=== PATIENT | female | born 1930 | race Caucasian/White ===

== ENCOUNTER 2016-05-17 10:02 | Inpatient (IN) | payer MEDICARE, BC ==
[~2016-05-17] VITALS: Ht 157.5 cm; Wt 65.2 kg
[2016-05-17] MEDS ORDERED: SOD CHLORIDE 0.9% 500 ML IV STA (10:22)
[2016-05-17] MEDS ORDERED: ALBUTEROL 0.5% (NEB) 2.5 MG/0.5 ML AMP INH STA (10:23)
[2016-05-17 10:55] LABS: MEAN CORPUSCULAR HEMOGLOBIN 25.2 pg (29.0-33.0); MEAN CORPUSCULAR VOLUME 77.6 fl (82.0-101.0); MEAN PLATELET VOLUME 10.5 fl (7.4-10.4); RED CELL DISTRIBUTION WIDTH 23.3 % (11.5-14.5)
[2016-05-17 11:03] LABS: ALBUMIN 2.3 g/dl (3.3-4.9); POTASSIUM 4.6 mmol/L (3.5-5.1)
[2016-05-17] MEDS ORDERED: AMBR5TAB3 PO (11:04)
[2016-05-17] MEDS ORDERED: FURO20TA3 PO (11:04)
[2016-05-17 11:05] LABS: CREATININE 0.83 mg/dl (0.44-1.00)
[2016-05-17] MEDS ORDERED: POTA-57 PO (11:05)
[2016-05-17] MEDS ORDERED: SILD20TA PO (11:05)
[2016-05-17 11:06] LABS: ALBUMIN/GLOBULIN RATIO 0.95; CALCIUM 7.7 mg/dl (8.4-10.2); RED BLOOD COUNT 1.63 10^6/ul (4.20-5.40); TOTAL PROTEIN 4.7 g/dl (6.1-8.1); UNCORRECTED WBC 10.4 10^3/ul (4.8-10.8)
[2016-05-17] MEDS ORDERED: [UNRECOGNIZED DRUG - CODE] PO (11:06)
[2016-05-17 11:08] LABS: CONDITION 1; HEMATOCRIT 12.6 % (37.0-47.0); LH ANALYZER COMMENTS 1; MEAN CORPUSCULAR HGB CONC 32.5 g/dl (32.0-37.0); PLATELET COUNT 231 10^3/UL (140-440); SUSPECT 1
[2016-05-17] MEDS ORDERED: RIVA20TA PO (11:10)
--- NOTE | 2016-05-17 11:14 | RADRPT ---
PROCEDURE: XR Chest. CLINICAL INDICATION: Abdominal pain TECHNIQUE: An AP view of the chest was obtained. COMPARISON: No prior exam is available for comparison. FINDINGS: There is prominence of the interstitial markings. No pleural effusion or pneumothorax is seen. Th e cardiomediastinal silhouette is mildly enlarged . Calcifications are seen within the aortic arch. The osseous structures demonstrate senescent changes. IMPRESSION: 1. Mild prominence of the interstitial markings, may reflect mild underlying interstitial edema or chronic lung changes. 2. Mild cardiomegaly and aortic atherosclerosis. RPTAT: HH .Mayuri Jaime MD, MD Date Time Electronically viewed and signed by .Mayuri Jaime MD, on 05/17/2016 11:13 .G/
[2016-05-17 11:17] LABS: TROPONIN-I 0.058 ng/ml (0.00-0.12)
--- NOTE | 2016-05-17 11:52 | ERA ---
ER Documentation Chief Complaint Date/Time DATE: 05/17/16 TIME: 11:48 Chief Complaint BIBA FOR SOB SINCE LAST NIGHT.Pt HAS COPD HPI 85-year-old woman presents with severe shortness of breath and worsening dyspnea on exertion. She has a long history of pulmonary hypertension and was recently found to be anemic. About 2 weeks ago she required IV transfusion of packed red blood cells for anemia. Patient states she noticed melena for the last few days. She denies calf or leg swelling, no chest pain, no loss of consciousness, no headache or blurry vision, no vomiting or diarrhea. Patient has been using ambrisentan, rivaroxaban, selexipag all of which can cause either bleeding or severe drop in hemoglobin. ROS All systems reviewed and are negative except as per history of present illness. Medications Home Meds Reported Medications Rivaroxaban* (Xarelto*) 20 Mg Tablet, 20 MG PO DAILY, #30 05/17/16 Selexipag (Uptravi) 600 Mcg Tablet, 600 MCG PO BID, #60 05/17/16 Sildenafil Citrate* (Sildenafil Citrate*) 20 Mg Tablet, 20 MG PO DAILY, #90 05/17/16 Potassium Chloride* (Klor-Con*) 20 Meq Tabsr, 10 MEQ PO DAILY, TAB.SA 05/17/16 Ambrisentan (Letairis) 5 Mg Tablet, 5 MG PO DAILY, #30 05/17/16 Furosemide* (Furosemide*) 20 Mg Tablet, 20 MG PO BID, #60 05/17/16 Allergies Allergies: Coded Allergies: amoxicillin (Verified Allergy, Unknown, 05/10/16) clarithromycin (Verified Allergy, Unknown, 05/10/16) lansoprazole (Verified Allergy, Unknown, 05/10/16) risedronate sodium (Verified Allergy, Unknown, 05/10/16) PMhx/Soc Pulmonary hypertension, systemic hypertension, congestive heart failure History of Surgery: Yes Anesthesia Reaction: No Hx Neurological Disorder: No Hx Respiratory Disorders: Yes (COPD) Hx Cardiac Disorders: Yes (HTN) Hx Psychiatric Problems: No Hx Miscellaneous Medical Probl: Yes (PULMONARY HYPERTENSION) Hx Alcohol Use: Yes (OCC SOCIAL) Hx Substance Use: No Hx Tobacco Use: Yes (FORMER SMOKER) Smoking Status: Former smoker FmHx Family History: No diabetes Physical Exam Vitals Vital Signs Date Time Temp Pulse Resp B/P Pulse Ox O2 Delivery O2 Flow Rate FiO2 05/17/16 10:38 93 18 99 Nasal Cannula 1.0 05/17/16 10:38 1.0 05/17/16 10:34 Nasal Cannula 2.0 05/17/16 10:34 Nasal Cannula 05/17/16 10:04 98.1 90 18 118/60 98 Physical Exam GENERAL: Well-developed, well-nourished, dyspneic, weak HEENT: Dry mucous membranes and pale conjunctival, no cervical spine tenderness or step-off deformities, no goiter, no jaundice or icterus, extraocular movements intact without pain. No submandibular induration, and no pharyngeal erythema NEURO: Alert and oriented 3, cranial nerves II through XII intact bilaterally, pupils equal round reactive to light, no focal deficits or facial asymmetry, sensation intact distally Strength 5/5 in upper and lower extremities bilaterally CARDIAC: Regular rate and rhythm, no murmurs rubs or gallops LUNGS: Bibasilar crackles, poor entry bilaterally ABDOMEN: Soft nontender, no guarding, no rigidity, no rebound, no psoas sign no obturator sign. Normoactive bowel sounds SKIN: Warm and dry to touch, no abrasions, contusions, or hematomas, no lacerations, no ecchymosis, no target lesions, and without ulcers EXTREMITIES: No clubbing cyanosis or edema, calves are bilaterally symmetrical, no Homans sign, no popliteal cord sign. Distal pulses equal and bilateral PSYCH: Normal affect without agitation or irritability Result Diagram: 05/17/16 1045 05/17/16 1045 Results 24 hrs Laboratory Tests Test 05/17/16 10:45 Alanine Aminotransferase (ALT/SGPT) 21IU/L Albumin 2.3g/dl Albumin/Globulin Ratio 0.95 Alkaline Phosphatase 41IU/L Anion Gap 15 Aspartate Amino Transf (AST/SGOT) 15IU/L Basophils # 10^3/ul Basophils % % Blood Morphology Comment Blood Urea Nitrogen 64mg/dl Calcium Level 7.7mg/dl Carbon Dioxide Level 26mmol/L Chloride Level 108mmol/L Creatinine 0.83mg/dl Direct Bilirubin 0.00mg/dl Eosinophils # 10^3/ul Eosinophils % % Globulin 2.40g/dl Glucose Level 121mg/dl Hematocrit 12.6% Hemoglobin 4.1g/dl Indirect Bilirubin 0.0mg/dl Lipase 57U/L Lymphocytes # 10^3/ul Lymphocytes % % Mean Corpuscular Hemoglobin 25.2pg Mean Corpuscular Hemoglobin Concent 32.5g/dl Mean Corpuscular Volume 77.6fl Mean Platelet Volume 10.5fl Monocytes # 10^3/ul Monocytes % % Neutrophils # 10^3/ul Neutrophils % % Platelet Count 54127^3/UL Potassium Level 4.6mmol/L Red Blood Count 1.6310^6/ul Red Cell Distribution Width 23.3% Sodium Level 144mmol/L Total Bilirubin 0.0mg/dl Total Protein 4.7g/dl Troponin I 0.058ng/ml White Blood Count 10.410^3/ul Current Medications Medications (Trade) Dose Ordered Sig/Maria Del Rosario Route PRN Reason Start Time Stop Time Status Last Admin Dose Admin Sodium Chloride (NS) 500 ml @ 500 mls/hr Q1H STAT IV 05/17/16 10:22 05/17/16 11:21 DC 05/17/16 10:33 Albuterol (Proventil 0.5% (Neb)) 5 mg ONCE STAT INH 05/17/16 10:23 05/17/16 10:24 DC 05/17/16 10:38 Furosemide (Lasix) 10 mg ONCE ONCE IV 05/17/16 12:30 05/17/16 12:40 DC Furosemide (Lasix) 10 mg ONCE ONCE IV 05/17/16 12:30 05/17/16 12:40 DC Procedures/MDM IV line was established patient was placed on classroom monitor rhythm strip revealed a sinus rhythm at about 90 bpm with upright P and T waves. Patient was afebrile. EKG performed, read by me revealed a normal sinus rhythm at 94 bpm, left axis deviation, right ventricular conduction delay with a QRS duration of 108 ms, no concerning ST elevations or depressions noted. One view chest x-ray performed, read by me there is chronic changes bilaterally interstitially, no acute infiltrates, no pneumothorax, no air under the diaphragm. I ordered type and screen and transfusion of 2 units PRBCs IV over 4 hours for suspected severe anemia. Critical Care: Time: 38 minutes, this was time separate from other procedures. Treatments/Evaluations: Close monitoring and treatment of unstable vital signs, cardiorespiratory, and neurologic status, while maintaining tight balance of fluid, respiratory, and cardiac interventions. Patient received albuterol 5 mg via nebulizer, normal saline 500 cc intravenously, as well as furosemide 20 mg IV 1. CBC revealed severe anemia with a hematocrit of 13, electrolytes revealed dehydration with a BUN/creatinine of 64/0.8, liver function tests are normal, troponin was negative. Calcium was low at 7.7. She is on multiple different medications which can cause a severe drop in hemoglobin including rivaroxaban, selexipag, and ambrisentan. She will be admitted to telemetry setting for continued medical management and evaluation. I spoke to her PMD Dr. Shukla. Departure Diagnosis: Primary Impression: Pulmonary hypertension Additional Impressions: Anemia Qualified Code: D64.9 - Anemia, unspecified type Upper GI bleed Dehydration Medication adverse effect Qualified Code: T88.7XXA - Medication adverse effect, initial encounter Condition: BRIAN Emerson MD May 17, 2016 11:52
[2016-05-17] MEDS ORDERED: FUROSEMIDE 20 MG INJ IV ONE ×2 (12:30)
[2016-05-17 13:44] LABS: ANISOCYTOSIS 2+; HYPOCHROMASIA 2+; LYMPHOCYTES # 0.9 10^3/ul (0.8-2.9); MICROCYTOSIS 2+; MONOCYTE # 0.1 10^3/ul (0.3-0.9); NEUTROPHIL # 9.3 10^3/ul (1.6-7.5)
[2016-05-17 13:45] LABS: HEMOGLOBIN 4.1 g/dl (12.0-16.0)
[2016-05-17 14:59] LABS: ADD UMIC YES; URINE BILIRUBIN (Dip) NEGATIVE (NEGATIVE); URINE BLOOD (Dip) 3+ (NEGATIVE); URINE COLOR LT. YELLOW (YELLOW); URINE GLUCOSE (Dip) NEGATIVE (NEGATIVE); URINE KETONES (Dip) NEGATIVE (NEGATIVE); URINE LEUKOCYTE ESTERASE (Dip) 1+ (NEGATIVE); URINE NITRITE (Dip) NEGATIVE (NEGATIVE); URINE TOTAL PROTEIN (Dip) NEGATIVE (NEGATIVE); URINE UROBILINOGEN (Dip) 0.2 E.U./dL (0.1-1.0)
[2016-05-17 15:32] LABS: SQUAMOUS EPITHELIAL CELL,UR FEW
[2016-05-17 15:33] LABS: BACTERIA,URINE FEW
--- NOTE | 2016-05-17 16:32 | CONS ---
Date/Time of Note Date/Time of Note DATE: 05/17/16 TIME: 16:22 Assessment/Plan Assessment/Plan Chief Complaint/Hosp Course hemaet emsis and melena- no abd pain pt has pulm ptn on viagra Problems: Additional Assessment/Plan ugi bleed, severe anemia needs transfusuon EGD in am Consultation Date/Type/Reason Admit Date/Time Initial Consult Date 24 HR Interval Summary Free Text/Dictation 85 yo wgem w hemael emsis and melena n nonsaids occ tylenol wt loss ~70 lbs recently no depression orno etoh , no tabbaco had large hemet emsis PROCEDURE: Femoral artery line placement. 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 1% lidocaine was used to numb the region. The <LEFT/RIGHT> femoral artery was accessed using a needle. Pulsatile, arterial blood was visualized and the artery was then threaded using the Seldinger technique and a catheter was then sutured into place. Good wave-form was obtained. The patient tolerated the procedure well without any immediate complications. The area was cleaned and Tegaderm was applied. ____ was present during the entire procedure. ESTIMATED BLOOD LOSS: Detailed Summary Gastrointestinal: constipation, decreased appetite, diarrhea, flatus, pain, passing stool, vomiting (heamemsis an dmelena) Exam/Review of Systems Vital Signs Vitals Vital Signs Date Time Temp Pulse Resp B/P Pulse Ox O2 Delivery O2 Flow Rate FiO2 05/17/16 10:38 93 18 99 Nasal Cannula 1.0 05/17/16 10:04 98.1 118/60 Exam Constitutional: alert, oriented Psych: anxiety, no complaints Eyes: PERRL, No icteric Neck: supple, No bruits, No nuchal rigidity Gastrointestinal: nl liver, spleen, non-tender, other (melena), soft, No ascites, No bowel sounds Musculoskeletal: No swelling Results Result Diagram: 05/17/16 1045 05/17/16 1045 Results 24 hrs Laboratory Tests Test 05/17/16 10:45 05/17/16 14:50 Alanine Aminotransferase (ALT/SGPT) 21 Albumin 2.3 L Albumin/Globulin Ratio 0.95 Alkaline Phosphatase 41 L Anion Gap 15 Anisocytosis 2+ Aspartate Amino Transf (AST/SGOT) 15 Basophils # Basophils % Blood Morphology Comment Blood Urea Nitrogen 64 H Calcium Level 7.7 L Carbon Dioxide Level 26 Chloride Level 108 Creatinine 0.83 Differential Comment MANUAL DIFF Direct Bilirubin 0.00 Eosinophils # Eosinophils % Giant Platelets RARE Globulin 2.40 Glucose Level 121 Hematocrit 12.6 L Hemoglobin 4.1 *L Hypochromasia 2+ Indirect Bilirubin 0.0 Large Platelets FEW Lipase 57 Lymphocytes # 0.9 Lymphocytes % 9.0 L Mean Corpuscular Hemoglobin 25.2 L Mean Corpuscular Hemoglobin Concent 32.5 Mean Corpuscular Volume 77.6 L Mean Platelet Volume 10.5 H Metamyelocytes # 0.1 Metamyelocytes % 1.0 H Microcytosis 2+ Monocytes # 0.1 L Monocytes % 1.0 Neutrophils # 9.3 H Neutrophils % 89.0 H Platelet Count 231 Potassium Level 4.6 Red Blood Count 1.63 L Red Cell Distribution Width 23.3 H Sodium Level 144 Total Bilirubin 0.0 L Total Protein 4.7 L Troponin I 0.058 White Blood Count 10.4 Urine Bacteria FEW Urine Bilirubin NEGATIVE Urine Clarity HAZY Urine Color LT. YELLOW Urine Glucose NEGATIVE Urine Hemoglobin 3+ H Urine Ketones NEGATIVE Urine Leukocyte Esterase 1+ H Urine Microscopic RBC 5-10 Urine Microscopic WBC 2-5 Urine Nitrite NEGATIVE Urine Specific [place] 1.015 Urine Squamous Epithelial Cells FEW Urine Total Protein NEGATIVE Urine Urobilinogen 0.2 E.U./dL Urine pH 5.0 Medications Medications protonix BROOKS CASTRO MD May 17, 2016 16:32
[2016-05-17 17:03] LABS: IRON 218 ug/dl (35-150)
[2016-05-17 17:12] LABS: TOTAL IRON BINDING CAPACITY 298 ug/dl (241-421)
--- NOTE | 2016-05-17 19:53 | CONS ---
Date/Time of Note Date/Time of Note DATE: 05/17/16 TIME: 19:36 Assessment/Plan Assessment/Plan Additional Assessment/Plan Acute blood loss anemia Possible GI bleed Paroxysmal atrial fibrillation/flutter Pulmonary hypertension History of DVT -Patient with severe anemia, undergoing blood transfusion. Agree with holding anticoagulation at the current time. There is a concern for GI bleeding given dark, black stools. Furthermore, her pulmonary hypertension medications ( Ambriaentan and Uptravi) can also cause anemia. Would hold at the current time until further investigation of etiology of severe anemia. Continue oxygen supplementation. Continue telemetry monitoring. Consultation Date/Type/Reason Admit Date/Time Type of Consultation: cv Reason for Consultation Shortness of breath Hx of Present Illness This is an 85-year-old female with past medical history of pulmonary hypertension on home oxygen, hypertension, congestive heart failure who presents with progressive worsening shortness of breath over the past few days. Patient came to the emergency room and found to be severely anemic. She is currently undergoing blood transfusions. She denies any chest pain or abdominal pain. She does complain of dark/black stools over the past few days. She denies any vomiting. Given her history of pulmonary hypertension, she has been on multiple medications for this reason. She does also have a history of DVTs in the distant past and has been on Xarelto. She denies any fevers or chills. 12 point review of systems was performed with all pertinent positives and negatives mentioned above and all else is negative Psychological: anxiety Past Medical History Pulmonary hypertension Hypertension Paroxysmal atrial fibrillation/flutter Past Surgical History Eye surgery Hysterectomy Family History Significant Family History: no pertinent family hx Social History Smoking Status: Former smoker Exam/Review of Systems Vital Signs Vitals Vital Signs Date Time Temp Pulse Resp B/P Pulse Ox O2 Delivery O2 Flow Rate FiO2 05/17/16 19:29 98.3 77 18 124/48 98 Nasal Cannula 2.0 Exam No apparent distress Constitutional: alert, frail, oriented Head: normocephalic Neck: supple Respiratory: other (course breath sounds bilaterally, no wheezing) Cardiovascular: other (S1-S2 heard), regular rate and rhythm Gastrointestinal: bowel sounds, non-tender, soft Extremities: edema Results Result Diagram: 05/17/16 1045 05/17/16 1045 Results 24 hrs Laboratory Tests Test 05/17/16 10:45 05/17/16 14:50 Alanine Aminotransferase (ALT/SGPT) 21 Albumin 2.3 L Albumin/Globulin Ratio 0.95 Alkaline Phosphatase 41 L Anion Gap 15 Anisocytosis 2+ Aspartate Amino Transf (AST/SGOT) 15 Basophils # Basophils % Blood Morphology Comment Blood Urea Nitrogen 64 H Calcium Level 7.7 L Carbon Dioxide Level 26 Chloride Level 108 Creatinine 0.83 Differential Comment MANUAL DIFF Direct Bilirubin 0.00 Eosinophils # Eosinophils % Giant Platelets RARE Globulin 2.40 Glucose Level 121 Hematocrit 12.6 L Hemoglobin 4.1 *L Hypochromasia 2+ Indirect Bilirubin 0.0 Iron Level 218 H Large Platelets FEW Lipase 57 Lymphocytes # 0.9 Lymphocytes % 9.0 L Mean Corpuscular Hemoglobin 25.2 L Mean Corpuscular Hemoglobin Concent 32.5 Mean Corpuscular Volume 77.6 L Mean Platelet Volume 10.5 H Metamyelocytes # 0.1 Metamyelocytes % 1.0 H Microcytosis 2+ Monocytes # 0.1 L Monocytes % 1.0 Neutrophils # 9.3 H Neutrophils % 89.0 H Percent Iron Saturation 73 H Platelet Count 231 Potassium Level 4.6 Red Blood Count 1.63 L Red Cell Distribution Width 23.3 H Sodium Level 144 Total Bilirubin 0.0 L Total Iron Binding Capacity 298 Total Protein 4.7 L Troponin I 0.058 White Blood Count 10.4 Urine Bacteria FEW Urine Bilirubin NEGATIVE Urine Clarity HAZY Urine Color LT. YELLOW Urine Glucose NEGATIVE Urine Hemoglobin 3+ H Urine Ketones NEGATIVE Urine Leukocyte Esterase 1+ H Urine Microscopic RBC 5-10 Urine Microscopic WBC 2-5 Urine Nitrite NEGATIVE Urine Specific [place] 1.015 Urine Squamous Epithelial Cells FEW Urine Total Protein NEGATIVE Urine Urobilinogen 0.2 E.U./dL Urine pH 5.0 Medications Medications Current Medications Famotidine (Pepcid Iv) 20 mg BID ONCE IV ; Start 05/17/16 at 21:00; Stop at 21:01 Procedures Procedures Atrial flutter with ventricular rate of 94 bpm, left anterior fascicular block, nonspecific STT wave abnormalities Nishant Cintron DO May 17, 2016 19:46
[2016-05-17 20:10] VITALS: TEMP 98.3
[2016-05-17 20:20] VITALS: BP 139/64; RESP 18
[2016-05-17 20:29] VITALS: PULSE 93
[2016-05-17] MEDS ORDERED: FAMOTIDINE 20 MG INJ IV ONE (21:00)
[2016-05-17] MEDS ORDERED: ONDANSETRON 4 MG INJ IV PRN (22:00)
[2016-05-17 22:56] VITALS: Ht 157.5 cm; Wt 65.2 kg
[2016-05-18] VITALS (23 sets, daily range): BP systolic 105–123; BP diastolic 43–57; PULSE 30–69; RESP 16–25
[2016-05-18] MEDS ORDERED: SPECIAL NON-STANDARD MEDICATION PO SCH ×2 (09:00)
[2016-05-18] MEDS: SILDENAFIL 20 MG TAB PO SCH ×3 (09:00→21:25)
[2016-05-18 09:26] LABS: HEMATOCRIT 19.3 % (37.0-47.0); MEAN CORPUSCULAR HEMOGLOBIN 26.8 pg (29.0-33.0); MEAN CORPUSCULAR HGB CONC 32.4 g/dl (32.0-37.0); MEAN CORPUSCULAR VOLUME 82.7 fl (82.0-101.0); MEAN PLATELET VOLUME 10.2 fl (7.4-10.4); PLATELET COUNT 194 10^3/UL (140-440); RED BLOOD COUNT 2.33 10^6/ul (4.20-5.40); UNCORRECTED WBC 10.3 10^3/ul (4.8-10.8); WHITE BLOOD COUNT 10.3 10^3/ul (4.8-10.8)
[2016-05-18 09:35] LABS: IRON 29 ug/dl (35-150)
[2016-05-18 09:51] LABS: TOTAL IRON BINDING CAPACITY 304 ug/dl (241-421)
[2016-05-18 09:53] LABS: ALBUMIN 2.3 g/dl (3.3-4.9); CONDITION 1; LH ANALYZER COMMENTS 1; SUSPECT 1
[2016-05-18 09:54] LABS: HEMOGLOBIN 6.3 g/dl (12.0-16.0)
[2016-05-18 09:55] LABS: CREATININE 0.8 mg/dl (0.44-1.00)
[2016-05-18 09:56] LABS: BILIRUBIN,INDIRECT 0.3 mg/dl (0-1.1); BILIRUBIN,TOTAL 0.3 mg/dl (0.2-1.3); CALCIUM 7.1 mg/dl (8.4-10.2); TOTAL PROTEIN 4.6 g/dl (6.1-8.1)
[2016-05-18] MEDS: [UNRECOGNIZED DRUG - REMARK] XX SCH ×2 (10:30→18:30)
[2016-05-18] MEDS ORDERED: FUROSEMIDE 20 MG INJ IV ONE (10:30)
[2016-05-18 11:04] LABS: FOLATE 9.8 ng/ml (2.8-20.0)
[2016-05-18 12:06] LABS: BASOPHILS % 0.4 % (0.0-2.0); EOSINOPHILS # 0.1 10^3/ul (0.0-0.5); EOSINOPHILS % 0.6 % (0.0-7.0); LYMPHOCYTES % 10.5 % (15.0-51.0); MEAN CORPUSCULAR HEMOGLOBIN 27.4 pg (29.0-33.0); MEAN CORPUSCULAR HGB CONC 33.2 g/dl (32.0-37.0); MEAN CORPUSCULAR VOLUME 82.4 fl (82.0-101.0); MEAN PLATELET VOLUME 10.7 fl (7.4-10.4); MONOCYTE # 0.8 10^3/ul (0.3-0.9); MONOCYTES % 8.6 % (0.0-11.0); NEUTROPHIL # 7.7 10^3/ul (1.6-7.5); NEUTROPHILS % 79.9 % (39.0-77.0); PLATELET COUNT 192 10^3/UL (140-440); RED BLOOD COUNT 2.42 10^6/ul (4.20-5.40); RED CELL DISTRIBUTION WIDTH 20.3 % (11.5-14.5); UNCORRECTED WBC 9.6 10^3/ul (4.8-10.8); WHITE BLOOD COUNT 9.6 10^3/ul (4.8-10.8)
[2016-05-18 12:09] LABS: CONDITION 1; LH ANALYZER COMMENTS 1; SUSPECT 1
[2016-05-18 12:11] LABS: HEMOGLOBIN 6.6 g/dl (12.0-16.0); INR 1.26; PROTIME 15.9 Sec (12.2-14.2); PT RATIO 1.2
[2016-05-18 12:12] LABS: HEMATOCRIT 19.9 % (37.0-47.0); PARTIAL THROMBOPLASTIN TIME 27.8 Sec (25.0-35.0)
[2016-05-18 12:49] LABS: EOSINOPHILS # 0.2 10^3/ul (0.0-0.5); MONOCYTE # 0.2 10^3/ul (0.3-0.9); MYELOCYTES # 0.2; NEUTROPHIL # 8.5 10^3/ul (1.6-7.5)
[2016-05-18] MEDS: DIGOXIN 0.125 MG TAB PO SCH (13:00)
--- NOTE | 2016-05-18 13:15 | CONS ---
DATE OF ADMISSION: 05/17/2016 DATE OF CONSULTATION: 05/18/2016 HEMATOLOGY CONSULTATION HISTORY OF PRESENT ILLNESS: The patient is an 85-year-old woman who is normally seen by Dr. Shields for an iron deficiency anemia that has been present for many years. The patient has received intra venous iron with Injectafer 2 times in February and again a third dose given 2 days ago. She also re ceived a blood transfusion about a week ago. She came in now with a very low hemoglobin and a histo ry of hematemesis, although she says she feels well now and has had no further nausea or vomiting. The patient's other medical history is notable in that she has had pulmonary hypertension, atrial fi brillation, hypertension, a deep venous thrombosis of the leg about 50 years ago associated with tra christine, eye surgery, and a hysterectomy, Please also note that an endoscopy is being planned, but she is getting transfused first. MEDICATIONS: The patient's current medication list includes: 1. Digoxin. 2. Sildenafil. 3. Pepcid. 4. Catapres. 5. Zofran. 6. Tylenol. She denies taking any aspirin. PHYSICAL EXAMINATION: GENERAL: Shows she is alert and oriented. HEAD: Atraumatic. EYES: Show marked pallor, but no jaundice. Pupils equally round and reactive to light and accommod ation. ENT: Examination is negative for telangiectasia. GASTROINTESTINAL: Abdomen is soft, nontender. LUNGS: Clear. CARDIAC: Examination reveals a regular rhythm with soft heart sounds. EXTREMITIES: Show no edema, calf tenderness, or Homans sign. LABORATORY STUDIES: Show that her admitting hemoglobin yesterday was 4.1, this morning it was 6.3 w ith a white count of 10.3 and a platelet count 194. Her chemistry panel from this morning shows nor mal electrolytes. BUN and creatinine are 46 and 0.8 respectively. Calcium 7.1. Her albumin 2.3 wi th a total protein of 4.6. B12 and folate are pending. Her iron studies are noted from yesterday, did show a 73% saturation, although the from this morning shows a 10% saturation. IMPRESSION: In summary, this is an 85-year-old woman who has gastrointestinal bleeding that is like ly from the upper gastrointestinal tract. She has gotten intravenous iron, so I do not think more i s needed over the next few days; however, she clearly needs to have a source identified so that she can be kept at safer levels. Endoscopy is being planned as soon as she can be transfused up to a le vi that is acceptable for this. Please note that blood transfusions are ordered and pending at thi s time. Dictated By: GURPREET CRAMER/MAKENNA Conf#: [id number] DID#: [id number]
--- NOTE | 2016-05-18 13:28 | CONS ---
Date/Time of Note Date/Time of Note DATE: 05/18/16 TIME: 13:13 Assessment/Plan Assessment/Plan Additional Assessment/Plan Acute blood loss anemia Possible GI bleed Paroxysmal atrial fibrillation/flutter, currently a. flutter Pulmonary hypertension Distant history of DVT feels better, plan for addition blood transfusion today and GI work up. Continue to hold anticoagulation. Continue O2 supplementation. Echo pending. Consultation Date/Type/Reason Admit Date/Time May 17, 2016 at 11:48 Initial Consult Date Type of Consultation: cv 24 HR Interval Summary Free Text/Dictation feeling better, sob mildly better, still with fatigue Exam/Review of Systems Vital Signs Vitals Vital Signs Date Time Temp Pulse Resp B/P Pulse Ox O2 Delivery O2 Flow Rate FiO2 05/18/16 11:40 98.3 53 18 123/55 100 05/18/16 08:14 Nasal Cannula 2.0 Intake and Output 05/17/16 05/17/16 05/18/16 15:00 23:00 07:00 Intake Total 350 ml 400 ml Balance 350 ml 400 ml Exam nad Constitutional: alert, frail, oriented Head: normocephalic Neck: supple Respiratory: other (course bs bilat, no wheeze) Cardiovascular: other (s1s2), regular rate and rhythm Gastrointestinal: bowel sounds, non-tender, soft Extremities: other (no edema) Results Result Diagram: 05/18/16 1140 05/18/16 0903 Results 24 hrs Laboratory Tests Test 05/17/16 14:50 05/18/16 09:03 05/18/16 11:40 Urine Bacteria FEW Urine Bilirubin NEGATIVE Urine Clarity HAZY Urine Color LT. YELLOW Urine Glucose NEGATIVE Urine Hemoglobin 3+ H Urine Ketones NEGATIVE Urine Leukocyte Esterase 1+ H Urine Microscopic RBC 5-10 Urine Microscopic WBC 2-5 Urine Nitrite NEGATIVE Urine Specific [place] 1.015 Urine Squamous Epithelial Cells FEW Urine Total Protein NEGATIVE Urine Urobilinogen 0.2 E.U./dL Urine pH 5.0 Alanine Aminotransferase (ALT/SGPT) 20 Albumin 2.3 L Albumin/Globulin Ratio 1.00 Alkaline Phosphatase 43 Anion Gap 11 Aspartate Amino Transf (AST/SGOT) 21 B-Type Natriuretic Peptide 2840 H Basophils # 0.0 Basophils % 0.4 Blood Morphology Comment Blood Urea Nitrogen 46 #H Calcium Level 7.1 L Carbon Dioxide Level 29 Chloride Level 107 Creatinine 0.80 Differential Comment MANUAL DIFF Direct Bilirubin 0.00 Eosinophils # 0.2 0.1 Eosinophils % 2.0 0.6 Folate 9.8 Globulin 2.30 Glucose Level 95 Hematocrit 19.3 #L 19.9 L Hemoglobin 6.3 #*L 6.6 *L Indirect Bilirubin 0.3 Iron Level 29 #L Lymphocytes # 1.0 1.0 Lymphocytes % 10.0 L 10.5 L Mean Corpuscular Hemoglobin 26.8 L 27.4 L Mean Corpuscular Hemoglobin Concent 32.4 33.2 Mean Corpuscular Volume 82.7 82.4 Mean Platelet Volume 10.2 10.7 H Metamyelocytes # 0.1 Metamyelocytes % 1.0 H Monocytes # 0.2 L 0.8 Monocytes % 2.0 8.6 Myelocytes # 0.2 Myelocytes % 2.0 H Neutrophils # 8.5 H 7.7 H Neutrophils % 83.0 H 79.9 H Nucleated Red Blood Cells # 0.0 Nucleated Red Blood Cells % 0.0 Percent Iron Saturation 10 L Platelet Count 194 192 Potassium Level 4.0 Red Blood Count 2.33 #L 2.42 L Red Cell Distribution Width 21.0 H 20.3 H Sodium Level 143 Total Bilirubin 0.3 Total Iron Binding Capacity 304 Total Protein 4.6 L Vitamin B12 Level 288 White Blood Count 10.3 9.6 Activated Partial Thromboplast Time 27.8 INR International Normalized Ratio 1.26 Prothrombin Time 15.9 H Prothrombin Time Ratio 1.2 Medications Medications Current Medications Sildenafil Citrate (Revatio) 20 mg TID PO ; Start 05/18/16 at 09:00 Digoxin (Digoxin) 0.125 mg DAILY@13 PO ; Start 05/18/16 at 13:00 Non-Formulary Medication 1 ea DAILY PO ; Start 05/18/16 at 09:00; Status UNV Non-Formulary Medication 1 ea BID PO ; Start 05/18/16 at 09:00; Status UNV Clonidine (Catapres) 0.1 mg TID PRN PO systolic BP > 170; Start 05/17/16 at 22: 00 Ondansetron HCl (Zofran Inj) 4 mg Q4H PRN IV NAUSEA AND/OR VOMITING; Start 04/21 at 22:00 Acetaminophen (Tylenol Tab) 500 mg QID PRN PO PAIN AND OR ELEVATED TEMP; Start 05/17/16 at 22:00 Famotidine (Pepcid Iv) 20 mg BID IV ; Start 05/18/16 at 09:00 Miscellaneous Information (*Order Clarification Bulletin) MEDICATION REQUIRES CLARIFICATI... Q8H XX ; Start 05/18/16 at 10:30 Nishant Cintron DO May 18, 2016 13:27
--- NOTE | 2016-05-18 14:04 | RADRPT ---
Echocardiogram Report Patient Name: TERRIE NAIK Gender: Female Date: 1930 Study Date: 18-May-2016 Fleet Operations Manager: Ron Vogel RDCS Location: Ref. Physician: MARQUIS ROBLES Quality: Technically Difficult Study Procedures: Transthoracic echocardiogram with complete 2D, M-Mode, and doppler examination. Indications: Atrial Fibrillation. 2D/M Mode Doppler Measurement Value Normal Ranges Measurement Value Normal Ranges LVIDd 2D 4.4 3.5 - 5.6 cm AV Mean Link 1.4 m/sec LVIDs 2D 3.3 2.1 - 4.1 cm AV Mean PG 9.0 mmHg FS 2D 24.5 % AV Peak Link 2.0 m/sec LVPWd 2D 1.2 0.6 - 1.1 cm AV Peak PG 16.0 mmHg IVSd 2D 1.3 0.6 - 1.1 cm AV VTI 53.9 cm IVS/LVPW 2D 1.1 LVOT Peak Link 1.0 m/sec AoR Diam 2D 2.6 2.0 - 3.7 cm LVOT Peak PG 4.0 mmHg LA/Ao 2D 2 0 - 1 MV E Peak Link 1.5 m/sec EDV 2D 82.9 cm3 MV A Peak Link 0.5 m/sec ESV 2D 35.6 cm3 MV E/A 3.1 LA Dimen 2D 4.5 2.3 - 4.0 cm MV Decel Time 285 msec MV E/A 3.1 TR Peak Link 2.2 m/sec TR Peak PG 19.0 mmHg RVSP 34.0 mmHg Findings Left Ventricle: Normal left ventricular systolic function. Normal left ventricular cavity size. Mild concentric left ventricular hypertrophy. Ejection fraction is visually estimated at 65 %. Abnormal Diastolic Function. Right Ventricle: Normal right ventricular size. Normal right ventricular systolic function. Left Atrium: There is mild enlargement of left atrium. Right Atrium: There is mild enlargement of right atrium. Mitral Valve: Mitral valve leaflets appear mildly thickened. Moderate mitral annular calcification. Trace mitral regurgitation. Aortic Valve: Aortic sclerosis without stenosis. Aortic cusps appear mildly calcified. Trace aortic valve regurgitation. Tricuspid Valve: Estimated peak PA systolic pressure 34 mmHg. Tricuspid valve appears mildly thickened. There is mild tricuspid regurgitation. Pericardium: Normal pericardium with no significant pericardial effusion. Aorta: Normal aortic root. IVC: Dilated IVC without respiratory collapse consistent with elevated right atrial pressure. Conclusions 1.Normal left ventricular systolic function. Normal left ventricular cavity size. Mild concentric left ventricular hypertrophy. Ejection fraction is visually estimated at 65 %. Abnormal Diastolic Function. 2.Normal right ventricular size. Normal right ventricular systolic function. 3.There is mild enlargement of left atrium. 4.There is mild enlargement of right atrium. 5.Estimated peak PA systolic pressure 34 mmHg (possibly underestimated given minimal tricuspid valve regurgitation jet). Mild tricuspid valve regurgitation. 6.Aortic sclerosis without stenosis. Trace aortic valve regurgitation. 7.Trace mitral regurgitation. 8.Normal pericardium with no significant pericardial effusion. Electronically Signed By: Nishant Cintron 18-May-2016 14:04:29 -0800 Patient Name: TERRIE NAIK Study Date: 18-May-[id number]
[2016-05-18 15:51] LABS: HEMATOCRIT 22.6 % (37.0-47.0); HEMOGLOBIN 7.5 g/dl (12.0-16.0)
[2016-05-18] MEDS: FAMOTIDINE 20 MG INJ IV SCH ×2 (16:01→20:44)
[2016-05-18] MEDS ORDERED: PROPOFOL 20 ML ONE (16:42)
[2016-05-18] MEDS ORDERED: FENTAnyl 50 MCG/ML VIAL ONE (16:43)
[2016-05-18] MEDS ORDERED: LETAIRIS 5 MG PO SCH (17:30)
--- NOTE | 2016-05-18 17:42 | OPR ---
Date/Time of Note Date/Time of Note DATE: 05/18/16 TIME: 17:34 Operative Report Free Text/Dictation 85 yo w fem with severe anemia and melena and syncope and hematemesis Procedure Date: May 18, 2016 Preoperative Diagnosis gi bleed Postoperative Diagnosis sever esophgueal hernia Operation Performed EGD and Bx Surgeon: BROOKS CASTRO MD Anesthesia: general, MAC Estimated Blood Loss: none Specimens esoph BXS Complications none Disposition: PACU Operative Findings severe esoph ulcerations no active bleeding but very severe inflammation poss Barrets very inflammed distal ulceration because of poor saturation we where unable to bipsy for barrets esophaguitis 2 simple bxs where taken of distal esoph. Procedure Description stomach,duodenum were examined and appear inflmed will check for H Pylori Copies To: CC: MARQUIS ROBLES MD, MICHAEL I MD May 18, 2016 17:42
[2016-05-18] MEDS: SUCRALFATE (100 MG/ML) 10ML CUP GTB SCH (20:43)
[2016-05-18] MEDS: SELEXIPAG PO SCH (20:44)
[2016-05-19] VITALS (12 sets, daily range): BP systolic 97–132; BP diastolic 51–60; PULSE 30–80; RESP 18–20
[2016-05-19] MEDS: [UNRECOGNIZED DRUG - REMARK] XX SCH ×3 (01:12→18:30)
[2016-05-19] MEDS: LETAIRIS 5 MG PO SCH (08:00)
[2016-05-19 08:04] LABS: BASOPHILS % 0.4 % (0.0-2.0); EOSINOPHILS # 0.1 10^3/ul (0.0-0.5); EOSINOPHILS % 1.4 % (0.0-7.0); HEMOGLOBIN 7.9 g/dl (12.0-16.0); LYMPHOCYTES # 0.9 10^3/ul (0.8-2.9); LYMPHOCYTES % 10.4 % (15.0-51.0); MEAN CORPUSCULAR HGB CONC 33.1 g/dl (32.0-37.0); MEAN CORPUSCULAR VOLUME 84.7 fl (82.0-101.0); MEAN PLATELET VOLUME 10.6 fl (7.4-10.4); MONOCYTE # 0.8 10^3/ul (0.3-0.9); MONOCYTES % 9.1 % (0.0-11.0); NEUTROPHIL # 6.8 10^3/ul (1.6-7.5); NEUTROPHILS % 78.7 % (39.0-77.0); PLATELET COUNT 195 10^3/UL (140-440); RED BLOOD COUNT 2.83 10^6/ul (4.20-5.40); RED CELL DISTRIBUTION WIDTH 20.2 % (11.5-14.5); RETICULOCYTE COUNT % 8.6 % (0.5-1.5); UNCORRECTED WBC 8.6 10^3/ul (4.8-10.8); WHITE BLOOD COUNT 8.6 10^3/ul (4.8-10.8)
[2016-05-19 08:12] LABS: CONDITION 1; LH ANALYZER COMMENTS 1; SUSPECT 1
[2016-05-19 08:22] LABS: CREATININE 0.76 mg/dl (0.44-1.00)
[2016-05-19 08:23] LABS: CALCIUM 7.2 mg/dl (8.4-10.2)
[2016-05-19 09:03] LABS: WHITE BLOOD COUNT 10.4 10^3/ul (4.8-10.8)
[2016-05-19] MEDS: SUCRALFATE (100 MG/ML) 10ML CUP GTB SCH ×4 (09:46→21:19)
[2016-05-19] MEDS: SILDENAFIL 20 MG TAB PO SCH ×3 (09:47→21:20)
[2016-05-19] MEDS: SELEXIPAG PO SCH ×2 (09:48→21:19)
[2016-05-19] MEDS: ACETAMINOPHEN 500 MG TAB PO PRN ×2 (10:04→16:24)
[2016-05-19] MEDS: FAMOTIDINE 20 MG INJ IV SCH ×2 (11:23→21:19)
[2016-05-19] MEDS: DIGOXIN 0.125 MG TAB PO SCH (16:29)
--- NOTE | 2016-05-19 16:43 | CONS ---
Date/Time of Note Date/Time of Note DATE: 05/19/16 TIME: 16:42 Assessment/Plan Assessment/Plan Chief Complaint/Hosp Course Acute blood loss anemia Possible GI bleed Paroxysmal atrial fibrillation/flutter, currently a. flutter Pulmonary hypertension Distant history of DVT Preserved LV function Problems: Additional Assessment/Plan HR controlled No AC due to GIB Consultation Date/Type/Reason Admit Date/Time May 17, 2016 at 11:48 Initial Consult Date Type of Consultation: cv 24 HR Interval Summary Free Text/Dictation no chest pain, no sob, no syncope Detailed Summary Respiratory: no complaints Cardiovascular: no complaints Gastrointestinal: no complaints Musculoskeletal: no complaints Skin: no complaints Neurologic: no complaints Exam/Review of Systems Vital Signs Vitals Vital Signs Date Time Temp Pulse Resp B/P Pulse Ox O2 Delivery O2 Flow Rate FiO2 05/19/16 16:05 80 05/19/16 15:48 98.0 19 117/56 100 05/19/16 08:15 Nasal Cannula 2.0 Intake and Output 05/18/16 05/18/16 05/19/16 15:00 23:00 07:00 Intake Total 100 ml 240 ml Balance 100 ml 240 ml Exam Constitutional: alert, oriented Head: atraumatic, normocephalic Neck: supple Respiratory: clear to auscultation Cardiovascular: irregular rhythm Gastrointestinal: soft Musculoskeletal: nl extremities to inspection Extremities: normal pulses Results Result Diagram: 05/19/16 0707 05/19/16 0707 Results 24 hrs Laboratory Tests Test 05/19/16 07:07 Absolute Reticulocyte Count 0.243 H Anion Gap 9 Basophils # 0.0 Basophils % 0.4 Blood Morphology Comment Blood Urea Nitrogen 33 #H Calcium Level 7.2 L Carbon Dioxide Level 29 Chloride Level 110 Creatinine 0.76 Eosinophils # 0.1 Eosinophils % 1.4 Glucose Level 84 Hematocrit 24.0 L Hemoglobin 7.9 L Lymphocytes # 0.9 Lymphocytes % 10.4 L Mean Corpuscular Hemoglobin 28.0 L Mean Corpuscular Hemoglobin Concent 33.1 Mean Corpuscular Volume 84.7 Mean Platelet Volume 10.6 H Monocytes # 0.8 Monocytes % 9.1 Neutrophils # 6.8 Neutrophils % 78.7 H Nucleated Red Blood Cells # 0.0 Nucleated Red Blood Cells % 0.0 Percent Reticulocyte Count 8.6 H Platelet Count 195 Potassium Level 4.0 Red Blood Count 2.83 L Red Cell Distribution Width 20.2 H Sodium Level 144 White Blood Count 8.6 Medications Medications Current Medications Sildenafil Citrate (Revatio) 20 mg TID PO Last administered on 05/19/16 16:28 ; Admin Dose 20 MG; Start 05/18/16 at 09:00 Digoxin (Digoxin) 0.125 mg DAILY@13 PO Last administered on 05/19/16 16:29; Admin Dose 0.125 MG; Start 05/18/16 at 13:00 Clonidine (Catapres) 0.1 mg TID PRN PO systolic BP > 170; Start 05/17/16 at 22: 00 Ondansetron HCl (Zofran Inj) 4 mg Q4H PRN IV NAUSEA AND/OR VOMITING; Start 04/21 at 22:00 Acetaminophen (Tylenol Tab) 500 mg QID PRN PO PAIN AND OR ELEVATED TEMP Last administered on 05/19/16 16:24; Admin Dose 500 MG; Start 05/17/16 at 22:00 Famotidine (Pepcid Iv) 20 mg BID IV Last administered on 05/19/16 11:23; Admin Dose 20 MG; Start 05/18/16 at 09:00 Miscellaneous Information (*Order Clarification Bulletin) MEDICATION REQUIRES CLARIFICATI... Q8H XX Last administered on 05/19/16 10:41; Admin Dose 1 EA; Start 05/18/16 at 10:30 Patient Own Medication 1 ea BID PO Last administered on 05/19/16 09:48; Admin Dose 1 EA; Start 05/18/16 at 21:00 Sucralfate (Carafate Susp) 1 gm QID GTB Last administered on 05/19/16 16:26; Admin Dose 1 GM; Start 05/18/16 at 21:00 Patient Own Medication 1 TABLET DAILY@08 PO ; Start 05/19/16 at 08:00 VI LEON MD May 19, 2016 16:43
[2016-05-19] MEDS ORDERED: GUAIFENESIN/CODEINE 5ML CUP PO PRN (17:00)
[2016-05-19] MEDS: SOD FERRIC GLUC COMPLX 125 MG in SOD CHLORIDE 0.9% 100 ML IVPB SCH (21:19)
[2016-05-20] VITALS (12 sets, daily range): BP systolic 110–152; BP diastolic 53–79; PULSE 30–75; RESP 18–19
[2016-05-20] MEDS: [UNRECOGNIZED DRUG - REMARK] XX SCH ×3 (02:30→18:22)
[2016-05-20 07:50] LABS: HEMATOCRIT 26.5 % (37.0-47.0); HEMOGLOBIN 8.8 g/dl (12.0-16.0)
[2016-05-20] MEDS: SUCRALFATE (100 MG/ML) 10ML CUP GTB SCH ×4 (08:45→22:01)
[2016-05-20] MEDS: SELEXIPAG PO SCH ×2 (08:45→22:02)
[2016-05-20] MEDS: FAMOTIDINE 20 MG INJ IV SCH ×2 (08:45→22:01)
[2016-05-20] MEDS: SILDENAFIL 20 MG TAB PO SCH ×3 (08:47→22:01)
[2016-05-20] MEDS: LETAIRIS 5 MG PO SCH (09:23)
[2016-05-20] MEDS: ACETAMINOPHEN 500 MG TAB PO PRN (12:26)
[2016-05-20] MEDS: DIGOXIN 0.125 MG TAB PO SCH (12:27)
--- NOTE | 2016-05-20 13:29 | CONS ---
Date/Time of Note Date/Time of Note DATE: 05/20/16 TIME: 13:24 Assessment/Plan Assessment/Plan Chief Complaint/Hosp Course severe esophaguitis Bxs pending CONTINUE ppis ,carafate ,anti reflux manouvers esophagus was so ragged still a bit worried about neoplasia or barrets keep off anticoags for now will need in a few days cont ferlicet for a few more days Problems: Consultation Date/Type/Reason Admit Date/Time May 17, 2016 at 11:48 Type of Consultation: cv 24 HR Interval Summary Free Text/Dictation no further bleeding Exam/Review of Systems Vital Signs Vitals Vital Signs Date Time Temp Pulse Resp B/P Pulse Ox O2 Delivery O2 Flow Rate FiO2 05/20/16 12:12 98.3 58 19 110/59 93 05/20/16 08:10 Nasal Cannula 2.0 Intake and Output 05/19/16 05/19/16 05/20/16 14:59 22:59 06:59 Intake Total 500 ml 700 ml Balance 500 ml 700 ml Exam Constitutional: alert, oriented, well developed Head: normocephalic Eyes: PERRL, nl sclera Neck: supple, No thyromegaly Cardiovascular: irregular rhythm, regular rate and rhythm Gastrointestinal: bowel sounds, soft, No ascites, No nl liver, spleen, No non-tender Results Result Diagram: 05/20/16 0612 05/19/16 0707 Results 24 hrs Laboratory Tests Test 05/20/16 06:12 Hematocrit 26.5 L Hemoglobin 8.8 L Medications Medications Current Medications Sildenafil Citrate (Revatio) 20 mg TID PO Last administered on 05/20/16 12:26 ; Admin Dose 20 MG; Start 05/18/16 at 09:00 Digoxin (Digoxin) 0.125 mg DAILY@13 PO Last administered on 05/20/16 12:27; Admin Dose 0.125 MG; Start 05/18/16 at 13:00 Clonidine (Catapres) 0.1 mg TID PRN PO systolic BP > 170; Start 05/17/16 at 22: 00 Ondansetron HCl (Zofran Inj) 4 mg Q4H PRN IV NAUSEA AND/OR VOMITING; Start 04/21 at 22:00 Acetaminophen (Tylenol Tab) 500 mg QID PRN PO PAIN AND OR ELEVATED TEMP Last administered on 05/20/16 12:26; Admin Dose 500 MG; Start 05/17/16 at 22:00 Famotidine (Pepcid Iv) 20 mg BID IV Last administered on 05/20/16 08:45; Admin Dose 20 MG; Start 05/18/16 at 09:00 Miscellaneous Information (*Order Clarification Bulletin) MEDICATION REQUIRES CLARIFICATI... Q8H XX Last administered on 05/19/16 10:41; Admin Dose 1 EA; Start 05/18/16 at 10:30 Patient Own Medication 1 ea BID PO Last administered on 05/20/16 08:45; Admin Dose 1 EA; Start 05/18/16 at 21:00 Sucralfate (Carafate Susp) 1 gm QID GTB Last administered on 05/20/16 12:26; Admin Dose 1 GM; Start 05/18/16 at 21:00 Patient Own Medication 1 TABLET DAILY@08 PO Last administered on 05/20/16 09: 23; Admin Dose 1 EA; Start 05/19/16 at 08:00 Guaifenesin/ Codeine Phosphate (Robitussin Ac Liquid Cup) 5 ml Q4H PRN PO cough ; Start 05/19/16 at 17:00 Phenol 1 lozenge 1 lozenge Q1H PRN MT sore throat; Start 05/19/16 at 17:00 Ferric Sodium Gluconate Complex/ Sodium Chloride (Ferrlecit/NS) 110 ml @ 110 mls/hr Q24H IVPB Last administered on 05/19/16 21:19; Admin Dose 110 MLS/HR; Start 05/19/16 at 21:00; Stop 05/23/16 at 21:59 Calcium Carbonate (Tums) 500 mg TID PO ; Start 05/20/16 at 14:30 BROOKS CASTRO MD May 20, 2016 13:29
[2016-05-20] MEDS: CALCIUM CARBONATE 500 MG CHEW TAB PO SCH ×2 (15:19→22:01)
[2016-05-20] MEDS: CEPASTAT LOZENGE MT PRN (22:00)
[2016-05-20] MEDS: SOD FERRIC GLUC COMPLX 125 MG in SOD CHLORIDE 0.9% 100 ML IVPB SCH (22:07)
[2016-05-21] VITALS (10 sets, daily range): BP systolic 100–128; BP diastolic 49–60; PULSE 50–62; RESP 18–20
[2016-05-21] MEDS: [UNRECOGNIZED DRUG - REMARK] XX SCH (01:56)
[2016-05-21 06:01] LABS: BASOPHILS % 0.1 % (0.0-2.0); EOSINOPHILS # 0.1 10^3/ul (0.0-0.5); EOSINOPHILS % 1.9 % (0.0-7.0); HEMATOCRIT 26.3 % (37.0-47.0); HEMOGLOBIN 8.7 g/dl (12.0-16.0); LYMPHOCYTES # 0.5 10^3/ul (0.8-2.9); LYMPHOCYTES % 8.2 % (15.0-51.0); MEAN CORPUSCULAR HEMOGLOBIN 28.9 pg (29.0-33.0); MEAN CORPUSCULAR HGB CONC 33.2 g/dl (32.0-37.0); MEAN CORPUSCULAR VOLUME 86.9 fl (82.0-101.0); MEAN PLATELET VOLUME 10.9 fl (7.4-10.4); MONOCYTE # 0.8 10^3/ul (0.3-0.9); MONOCYTES % 13.3 % (0.0-11.0); NEUTROPHIL # 4.7 10^3/ul (1.6-7.5); NEUTROPHILS % 76.5 % (39.0-77.0); PLATELET COUNT 171 10^3/UL (140-440); RED BLOOD COUNT 3.02 10^6/ul (4.20-5.40); RED CELL DISTRIBUTION WIDTH 22.5 % (11.5-14.5); UNCORRECTED WBC 6.2 10^3/ul (4.8-10.8); WHITE BLOOD COUNT 6.2 10^3/ul (4.8-10.8)
[2016-05-21 06:10] LABS: CONDITION 1; LH ANALYZER COMMENTS 1; SUSPECT 1
[2016-05-21 06:23] LABS: POTASSIUM 3.6 mmol/L (3.5-5.1)
[2016-05-21 06:26] LABS: CREATININE 0.78 mg/dl (0.44-1.00)
[2016-05-21 06:27] LABS: CALCIUM 7.2 mg/dl (8.4-10.2); MAGNESIUM 2.4 mg/dl (1.7-2.5)
[2016-05-21] MEDS: CALCIUM CARBONATE 500 MG CHEW TAB PO SCH ×2 (08:36→13:49)
[2016-05-21] MEDS: SUCRALFATE (100 MG/ML) 10ML CUP GTB SCH ×2 (08:36→13:48)
[2016-05-21] MEDS: LETAIRIS 5 MG PO SCH (08:37)
[2016-05-21] MEDS: FAMOTIDINE 20 MG INJ IV SCH (08:37)
[2016-05-21] MEDS: SILDENAFIL 20 MG TAB PO SCH ×2 (08:37→13:49)
[2016-05-21] MEDS: SELEXIPAG PO SCH (08:38)
[2016-05-21] MEDS: CEPASTAT LOZENGE MT PRN (11:31)
--- NOTE | 2016-05-21 12:16 | CONS ---
Date/Time of Note Date/Time of Note DATE: 05/21/16 TIME: 12:13 Assessment/Plan Assessment/Plan Additional Assessment/Plan Acute blood loss anemia Possible GI bleed Paroxysmal atrial fibrillation/flutter, currently a. flutter Pulmonary hypertension Distant history of DVT Preserved LV function -Patient with esophageal ulcer, anticoagulation remains on hold. Mild congestion on lung examination, would give gentle diuretics as blood pressure and renal function permits. Consultation Date/Type/Reason Admit Date/Time May 17, 2016 at 11:48 Type of Consultation: cv 24 HR Interval Summary Free Text/Dictation Denies shortness of breath, dizziness, palpitations Exam/Review of Systems Vital Signs Vitals Vital Signs Date Time Temp Pulse Resp B/P Pulse Ox O2 Delivery O2 Flow Rate FiO2 05/21/16 11:41 97.6 60 20 100/49 95 05/21/16 08:07 Nasal Cannula 2.0 Intake and Output 05/20/16 05/20/16 05/21/16 15:00 23:00 07:00 Intake Total 600 ml 200 ml Balance 600 ml 200 ml Exam Constitutional: alert, frail, oriented Head: normocephalic Respiratory: other (course breath sounds bilaterally with minimal scattered crackles more so at the bases) Cardiovascular: other (S1-S2 heard), regular rate and rhythm, systolic murmur Gastrointestinal: bowel sounds, non-tender, soft Extremities: edema (trace) Results Result Diagram: 05/21/16 0529 05/21/16 0529 Results 24 hrs Laboratory Tests Test 05/21/16 05:29 Anion Gap 7 L Basophils # 0.0 Basophils % 0.1 Blood Morphology Comment Blood Urea Nitrogen 18 # Calcium Level 7.2 L Carbon Dioxide Level 30 Chloride Level 107 Creatinine 0.78 Eosinophils # 0.1 Eosinophils % 1.9 Glucose Level 84 Hematocrit 26.3 L Hemoglobin 8.7 L Lymphocytes # 0.5 L Lymphocytes % 8.2 L Magnesium Level 2.4 Mean Corpuscular Hemoglobin 28.9 L Mean Corpuscular Hemoglobin Concent 33.2 Mean Corpuscular Volume 86.9 Mean Platelet Volume 10.9 H Monocytes # 0.8 Monocytes % 13.3 H Neutrophils # 4.7 Neutrophils % 76.5 Nucleated Red Blood Cells # 0.0 Nucleated Red Blood Cells % 0.0 Platelet Count 171 Potassium Level 3.6 Red Blood Count 3.02 L Red Cell Distribution Width 22.5 H Sodium Level 140 White Blood Count 6.2 # Medications Medications Current Medications Sildenafil Citrate (Revatio) 20 mg TID PO Last administered on 05/21/16 08:37 ; Admin Dose 20 MG; Start 05/18/16 at 09:00 Digoxin (Digoxin) 0.125 mg DAILY@13 PO Last administered on 05/20/16 12:27; Admin Dose 0.125 MG; Start 05/18/16 at 13:00 Clonidine (Catapres) 0.1 mg TID PRN PO systolic BP > 170; Start 05/17/16 at 22: 00 Ondansetron HCl (Zofran Inj) 4 mg Q4H PRN IV NAUSEA AND/OR VOMITING; Start 04/21 at 22:00 Acetaminophen (Tylenol Tab) 500 mg QID PRN PO PAIN AND OR ELEVATED TEMP Last administered on 05/20/16 12:26; Admin Dose 500 MG; Start 05/17/16 at 22:00 Famotidine (Pepcid Iv) 20 mg BID IV Last administered on 05/21/16 08:37; Admin Dose 20 MG; Start 05/18/16 at 09:00 Patient Own Medication 1 ea BID PO Last administered on 05/21/16 08:38; Admin Dose 1 EA; Start 05/18/16 at 21:00 Sucralfate (Carafate Susp) 1 gm QID GTB Last administered on 05/21/16 08:36; Admin Dose 1 GM; Start 05/18/16 at 21:00 Patient Own Medication 1 TABLET DAILY@08 PO Last administered on 05/21/16 08: 37; Admin Dose 1 EA; Start 05/19/16 at 08:00 Guaifenesin/ Codeine Phosphate (Robitussin Ac Liquid Cup) 5 ml Q4H PRN PO cough Last administered on 05/20/16 22:01; Admin Dose 5 ML; Start 05/19/16 at 17:00 Phenol 1 lozenge 1 lozenge Q1H PRN MT sore throat Last administered on 11:31; Admin Dose 1 LOZENGE; Start 05/19/16 at 17:00 Ferric Sodium Gluconate Complex/ Sodium Chloride (Ferrlecit/NS) 110 ml @ 110 mls/hr Q24H IVPB Last administered on 05/20/16 22:07; Admin Dose 110 MLS/HR; Start 05/19/16 at 21:00; Stop 05/23/16 at 21:59 Calcium Carbonate (Tums) 500 mg TID PO Last administered on 05/21/16 08:36; Admin Dose 500 MG; Start 05/20/16 at 14:30 Nishant Cintron DO May 21, 2016 12:16
[2016-05-21 12:19] LABS: BASOPHILS % 0.3 % (0.0-2.0); EOSINOPHILS # 0.1 10^3/ul (0.0-0.5); EOSINOPHILS % 2.2 % (0.0-7.0); HEMATOCRIT 26.4 % (37.0-47.0); HEMOGLOBIN 8.6 g/dl (12.0-16.0); LYMPHOCYTES # 0.5 10^3/ul (0.8-2.9); LYMPHOCYTES % 7.2 % (15.0-51.0); MEAN CORPUSCULAR HEMOGLOBIN 28.3 pg (29.0-33.0); MEAN CORPUSCULAR HGB CONC 32.5 g/dl (32.0-37.0); MEAN PLATELET VOLUME 10.8 fl (7.4-10.4); MONOCYTE # 0.7 10^3/ul (0.3-0.9); MONOCYTES % 11.1 % (0.0-11.0); NEUTROPHILS % 79.2 % (39.0-77.0); PLATELET COUNT 176 10^3/UL (140-440); RED BLOOD COUNT 3.03 10^6/ul (4.20-5.40); RED CELL DISTRIBUTION WIDTH 23.8 % (11.5-14.5); UNCORRECTED WBC 6.3 10^3/ul (4.8-10.8); WHITE BLOOD COUNT 6.3 10^3/ul (4.8-10.8)
[2016-05-21 12:22] LABS: CONDITION 1; LH ANALYZER COMMENTS 1
[2016-05-21] MEDS ORDERED: FUROSEMIDE 20 MG TAB PO SCH (12:30)
--- NOTE | 2016-05-21 12:34 | CONS ---
DATE OF ADMISSION: 05/17/2016 DATE OF CONSULTATION: 05/21/2016 HISTORY OF PRESENT ILLNESS: The patient states she is feeling well. She denies any shortness of br eath, cough or chest pain. The patient has now received a total of 4 units of packed red blood cells. The last was on 05/19/19 17. CBC this morning, white count 6200, hemoglobin is 8.9, hematocrit 26.3 and platelet count 171,000. PHYSICAL EXAMINATION: SKIN: No ecchymoses, but pale. No petechiae or rashes. HEENT: No scleral icterus. Pale mucosa. NECK: No jugular venous distention or thyroid enlargement. CHEST: Decreased breath sounds throughout with scattered rales. ABDOMEN: Soft. No masses, no ascites. HEART: Irregularly irregular rate and rhythm. ABDOMEN: Soft, no masses or ascites. EXTREMITIES: No clubbing or cyanosis. It should be noted that this patient was taking rivaroxaban prior to admission. Last dose was 05/17 and the effect should be dissipated by this time. The patient also was recently on a tapering course of prednisone started by her lamps tester and inspector irvin faulkner of respiratory difficulties. The patient also was starting on a course of intravenous iron, which started the week prior to her a dmission to the hospital. It had been calculated that the patient would require approximately 2200 mg of elemental iron before her recent increased GI bleeding. The patient is presently receiving ferric sodium gluconate. As an outpatient, she will receive ferr ic carboxymaltose and will be able to receive a dose of 750 mg per session. Dictated By: FRANKI LINO MD, SR/MAKENNA Conf#: [id number] DID#: [id number]
[2016-05-21] MEDS: DIGOXIN 0.125 MG TAB PO SCH (13:48)
--- NOTE | 2016-05-22 09:35 | DS ---
DATE OF ADMISSION: 05/17/2016 DATE OF DISCHARGE: 05/21/2016 DISCHARGE DIAGNOSES: 1. Gastrointestinal bleed secondary to esophageal erosion. 2. Also pulmonary hypertension. 3. Atrial fibrillation. HOSPITAL COURSE: This is an 85-year-old female that was admitted with a hemoglobin of 4.1, was briones sfused 3 units of packed red blood cells, had an EGD performed which demonstrated severe esophageal erosions. The patient has been on numerous years of Nexium, but due to family agreement, stopped he r Nexium approximately 1 year ago. The patient has had abdominal epigastric pains over the last yea r and has been on Xarelto for her atrial fibrillation. The patient's hemoglobin appears to be stabi lized at approximately 8.8 to 8.7, and she is currently stable for discharge. At the time of her discharge, she is to restart all her medications with the exception of her Xarelt o. She is to restart: 1. Digoxin 0.125 every day. 2. Her Prolia every 6 months. 3. Uptravi 600 mg. 4. . 5. Her Viagra 20 mg t.i.d. 6. Her Lasix and potassium as she has been taking it. She is to follow up with her cardroom attendant, Dr. Rothman, to determine if and when she is able to resta rt her Xarelto for her atrial fibrillation. She had a discussion with her GI doctor, Dr. Barrett, that he may not need to follow up if her hemoglobin stabilizes. She is also to follow up with Dr. Nely cunningham her health science instructor, and at a later date, follow up with ____, her operational communication chief. The patie nt's pulmonary hypertension was stable throughout this admission. Dictated By: MARQUIS BURNHAM/MAKENNA Conf#: [id number] DID#: [id number]
== END 2016-05-21 15:42 | disposition home or self-care (01) | DRG 381 ==
LOC: E/R 10:02 → MS4 11:48
PROVIDERS: ADMIT Internal Medicine; ATTEND Internal Medicine
PROC: 30233N1 Transfusion of Nonautologous Red Blood Cells into Peripheral Vein, Percutaneous Approach (ICD-10-PCS; 2016-05-17)
PROC: 0DB58ZX Excision of Esophagus, Via Natural or Artificial Opening Endoscopic, Diagnostic (ICD-10-PCS; principal; 2016-05-18 14:30)
DX: K22.10 Ulcer of esophagus without bleeding (principal); D62 Acute posthemorrhagic anemia; I27.2 Other secondary pulmonary hypertension; I48.92 Unspecified atrial flutter; I50.9 Heart failure, unspecified; K44.9 Diaphragmatic hernia without obstruction or gangrene; I48.91 Unspecified atrial fibrillation; Z79.01 Long term (current) use of anticoagulants
CPT/HCPCS: 36430; 71010; 80048; 80053; 81001; 81003; 82607; 82746; 83540; 83690; 83735; 83880; 84484; 85014; 85018; 85025; 85045; 85610; 85730; 86644; 86850; 86900; 86901; 86920; 87081; 88305; 88313; 93005; 93306; 94644; 96374; 96376; J1940; J2916; J3010; J7040; P9016

== ENCOUNTER 2017-03-22 09:03 | Emergency (ER) | payer MEDICARE, BC ==
[~2017-03-22] VITALS: Wt 64.0 kg
[~2017-03-22 09:03] MED LIST: AMBR5TAB3 PO; FURO20TA3 PO; POTA-57 PO; SILD20TA PO; [UNRECOGNIZED DRUG - CODE] PO
[2017-03-22] MEDS ORDERED: ONDANSETRON (ODT) 4 MG TAB ODT STA (09:11)
[2017-03-22] MEDS ORDERED: HYDROCODONE/APAP (10/325) TAB PO ONE (09:30)
--- NOTE | 2017-03-22 09:38 | RADRPT ---
PROCEDURE: XR LEFT SHOULDER. CLINICAL INDICATION: Left shoulder pain TECHNIQUE: 2 views of the left shoulder were performed. COMPARISON: None. FINDINGS: There is an acute displaced fracture of the left humeral neck, with adjacent soft tissue swelling. 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 Widening of the left acromioclavicula r joint is noted as well, measuring up to 1.0 cm. The coracoclavicular space is within limits. The c lavicle otherwise appear to be intact. There is adjacent soft tissue swelling. IMPRESSION: 1. Acute displaced fracture of the left humeral neck with adjacent soft tissue swelling. 2. Widening of the left acromioclavicular joint, concerning for acromioclavicular sprain. RPTAT: AAPP Physician Grace Date Time Electronically viewed and signed by Physician Grace on 03/22/2017 09:37 ANDRAE/
[2017-03-22] MEDS ORDERED: HYDR-902 PO (09:47)
[2017-03-22] MEDS ORDERED: DOCU-144 PO (09:47)
--- NOTE | 2017-03-22 13:31 | ERD ---
ER Documentation Chief Complaint Chief Complaint left arm pain after mechanical fall HPI Patient is an 86-year-old female with no medical problems who presents with a trip and fall. She has left-sided shoulder pain. She was brought in by ambulance. She did not hit her head and she did not lose consciousness. She did not pass out she simply tripped on her slippers. She is right-handed. This happened just prior to arrival. She has had no treatment as of yet. Upon review of old medical records the patient one previous visit in May 2016. Her primary doctor is Dr. Shukla. ROS All systems reviewed and are negative except as per history of present illness. Medications Home Meds Active Scripts Docusate Sodium* (Colace*) 100 Mg Capsule, 100 MG PO TID, #30 CAP Prov:DUGLAS SNOW MD 03/22/17 Hydrocodone/Acetaminophen ([place] 10-325 Tablet) 1 Each Tablet, 1 TAB PO Q6H Y for PAIN, #12 TAB Prov:DUGLAS SNOW MD 03/22/17 Reported Medications Selexipag (Uptravi) 600 Mcg Tablet, 600 MCG PO BID, #60 05/17/16 Sildenafil Citrate* (Sildenafil Citrate*) 20 Mg Tablet, 20 MG PO DAILY, #90 05/17/16 Potassium Chloride* (Klor-Con*) 20 Meq Tabsr, 10 MEQ PO DAILY, TAB.SA 05/17/16 Ambrisentan (Letairis) 5 Mg Tablet, 5 MG PO DAILY, #30 05/17/16 Furosemide* (Furosemide*) 20 Mg Tablet, 20 MG PO BID, #60 05/17/16 Allergies Allergies: Coded Allergies: amoxicillin (Verified Allergy, Unknown, 05/10/16) clarithromycin (Verified Allergy, Unknown, 05/10/16) lansoprazole (Verified Allergy, Unknown, 05/10/16) risedronate sodium (Verified Allergy, Unknown, 05/10/16) PMhx/Soc History of Surgery: Yes (hysterectomy, cataract surgery) Anesthesia Reaction: No Hx Neurological Disorder: No Hx Respiratory Disorders: Yes (pulmonary HTN) Hx Cardiac Disorders: Yes (HTN, atrial flutter, atrial fibrillation, CHF) Hx Psychiatric Problems: No Hx Miscellaneous Medical Probl: Yes (Anemia, DVT - left LE (s)) Hx Alcohol Use: No Hx Substance Use: No Hx Tobacco Use: Yes Smoking Status: Never smoker FmHx Family History: diabetes Physical Exam Vitals Vital Signs Date Time Temp Pulse Resp B/P Pulse Ox O2 Delivery O2 Flow Rate FiO2 03/22/17 09:10 98.0 78 18 170/85 98 Physical Exam Const: No acute distress Head: Atraumatic Eyes: Normal Conjunctiva ENT: Normal External Ears, Nose and Mouth. Neck: Full range of motion..~ No meningismus. Resp: Clear to auscultation bilaterally Cardio: Regular rate and rhythm, no murmurs Abd: Soft, non tender, non distended. Normal bowel sounds Skin: No petechiae or rashes Back: No midline or flank tenderness Ext: Left shoulder pain with palpation Neur: Awake and alert Psych: Normal Mood and Affect Results 24 hrs Current Medications Medications (Trade) Dose Ordered Sig/Maria Del Rosario Route PRN Reason Start Time Stop Time Status Last Admin Dose Admin Acetaminophen/ Hydrocodone Bitart ([place] (10/325)) 1 tab ONCE ONCE PO 03/22/17 09:30 03/22/17 09:31 DC 03/22/17 09:17 Ondansetron HCl (Zofran Odt) 4 mg ONCE STAT ODT 03/22/17 09:11 03/22/17 09:12 DC 03/22/17 09:17 Procedures/MDM X-ray Shoulder 3V Interpreted by me: Bones: Humerus fracture Joints: AC joint separation Foreign body: None Splint Note Type: Sling Location: Left upper extremity Indication: Humerus fracture Splint Assessment: Neurovascularly intact post splint placement with good fit. Patient is an 86-year-old female presents with a trip and fall. She has a left shoulder fracture. She will need orthopedic follow-up and I will give her information for Dr. Baeza. She may benefit from plates and screws. This is a closed fracture and she does not need admission to the hospital at this time. She was given [place] and Zofran. She will be given a prescription for [place] and Colace. She can return for any worsening symptoms. The patient understands the plan and is okay for discharge at this time. Departure Diagnosis: Primary Impression: Humerus fracture Encounter type: initial encounter Humerus Location: proximal Fracture type : closed Fracture morphology: other fracture Fracture alignment: displaced Laterality: left Qualified Code: S42.292A - Other closed displaced fracture of proximal end of left humerus, initial encounter Condition: Fair Patient Instructions: Fracture, Shoulder Referrals: SHRADDHA BAEZA MD Additional Instructions: SPECIALIST: YOU HAVE A MEDICAL CONDITION WHICH REQUIRES YOU TO SEE A SPECIALIST WITHIN THE NEXT 1-2 DAYS. PLEASE FOLLOW UP WITH YOUR PRIMARY PHYSICIAN FOR REFFERAL.IF YOU DO NOT HAVE A PRIMARY CARE PHYSICIAN AND/OR YOU CAN NOT AFFORD TO SEE A PHYSICIAN THE FOLLOWING RESOURCES HAVE BEEN SUPPLIED TO YOU. IT IS YOUR RESPONSIBILITY TO BE SEEN BY THE SPECIALIST DUGLAS SNOW MD Mar 22, 2017 13:31
== END 2017-03-22 13:15 | disposition home or self-care (01) ==
LOC: E/R 09:03
DX: S42.292A Other displaced fracture of upper end of left humerus, initial encounter for closed fracture (principal); I10 Essential (primary) hypertension; I50.9 Heart failure, unspecified; W01.0XXA Fall on same level from slipping, tripping and stumbling without subsequent striking against object, initial encounter; Y92.9 Unspecified place or not applicable; Z87.891 Personal history of nicotine dependence
CPT/HCPCS: 73030

== ENCOUNTER 2018-01-24 14:20 | Emergency (ER) | END 2018-01-24 16:46 | disposition home or self-care (01) ==